=== PATIENT | male | born 1955 | race Two or more races ===

== ENCOUNTER 2018-04-14 20:18 | Emergency (ER) | payer OTHER ==
[2018-04-14] MEDS: HYDROCODONE/APAP (10/325) TAB PO (22:56)
== END 2018-04-15 00:56 | disposition home or self-care (01) ==
LOC: E/R 04-15 00:56
DX: M79.89 Other specified soft tissue disorders (principal); E11.9 Type 2 diabetes mellitus without complications; I10 Essential (primary) hypertension; Z79.4 Long term (current) use of insulin; Z79.82 Long term (current) use of aspirin
CPT/HCPCS: 93971; 99284-25